=== PATIENT | male | born 1945 | race African-American/Black ===

== ENCOUNTER 2016-09-25 11:06 | Emergency (ER) | payer OTHER ==
[2016-09-25] MEDS ORDERED: SOLU-MEDROL IV ONE (11:19)
[2016-09-25] MEDS ORDERED: NS 1,000 ML IV ONE (11:19)
[2016-09-25] MEDS ORDERED: DUONEB (A & A) INH ONE (11:19)
[2016-09-25 11:30] LABS: BE 8.8 mmoll (-3.0-3.0); BLOOD TYPE ARTERIAL; DRAW SITE R RADIAL; METHB 1.7 % (0.0-1.5); O2(CT) 18.8 mL/dL (15.0-23.0); PCO2(98.6) 41 mmHg (35-45); PO2(98.6) 60 mmHg (60-100); SAMPLE BLOOD; SAO2 94.9 % (95.0-100.0); THB 14.9 g/dL (11.5-17.4); pH(98.6) 7.51 (7.35-7.45)
[2016-09-25 11:32] LABS: ALLEN TEST YES; MODALITY ROOM AIR
--- NOTE | 2016-09-25 11:47 | EKG Report ---
Test Performed on : 09/25/2016 11:38:35 AM Test Reason : AMS Blood Pressure : / mmHG Vent. Rate : 089 BPM Atrial Rate : 089 BPM P-R Int : 168 ms QRS Dur : 092 ms QT Int : 354 ms P-R-T Axes : 045 -47 040 degrees QTc Int : 430 ms Normal sinus rhythm. Left axis deviation Pulmonary disease pattern Abnormal ECG No previous ECGs available Unconfirmed Result
--- NOTE | 2016-09-25 11:52 | PROVIDER DOCUMENTATION ---
HPI-General Adult - General Source: patient - History of Present Illness -Gen Adult Nature of Presenting Problems: Reports with weakness coughing and fever and generalized pain x 4 days . Family at bedside. Reports n/v. Location of Pain/Injury: reports: generalized Quality of Pain: reports: none Severity: reports: moderate Onset/Duration: reports: 4 days ago Timing: reports: still present Similar Symptoms Previously?: No Recently seen or treated by another doctor?: No <Dannie Rodriguez - Last Filed: 09/25/16 13:56> <Latricia Beck - Last Filed: 09/25/16 14:07> - General Chief Complaint: Dizziness Stated Complaint: NAUSEA/WEAKNESS Time Seen by Provider: 09/25/16 11:15 Allergies/Adverse Reactions: Patient Allergies Allergy/AdvReac Type Severity Reaction Status Date / Time No Known Allergies Allergy Verified 09/25/16 11:17 Home Medications: Indapamide 2.5 mg PO DAILY 09/25/16 Meclizine [Antivert] 12.5 mg PO Q6H PRN PRN 09/25/16 Tamsulosin HCl 0.4 mg PO DAILY 09/25/16 Review of Systems - Adult - REVIEW OF SYSTEMS - ADULT Constitutional: reports: fever, fatique. denies: chills Eyes: reports: no symptoms reported Ears, Nose, Mouth & Throat: denies: ear pain, sinus problem, throat pain Cardiovascular: denies: chest pain, irregular heart rate, orthopnea, syncope Respiratory: reports: cough. denies: pleurisy, shortness of breath, wheezing Gastrointestinal: reports: nausea, vomiting. denies: abdominal pain, diarrhea, rectal bleeding Genitourinary: reports: no symptoms reported Musculoskeletal: reports: muscle aches. denies: frequent leg cramps, joint pain , joint swelling Integumentary: reports: no symptoms reported Neurological: reports: no symptoms reported Psychiatric: reports: no symptoms reported Endocrine: reports: no symptoms reported Hematologic/Lymphatic: reports: no symptoms reported Allergic/Immunologic: reports: no symptoms reported All Other Systems: Reviewed and Negative <Dannie Rodriguez - Last Filed: 09/25/16 13:56> Past History - Adult - PAST MEDICAL HISTORY-ADULT Review of Records: reports: Nursing Assessment Review Major Childhood Illnesses: reports: denies history Cardiovascular: reports: HTN - IMMUNIZATION STATUS Childhood Immunizations: See Nurse Assessment Flu Vaccine: See Nurse Assessment - FAMILY HISTORY Family History: reviewed, not pertinent - SOCIAL HISTORY Smoking: denies Substance Use: none/never <Dannie Rodriguez - Last Filed: 09/25/16 13:56> Physical Exam-General - PHYSICAL EXAM-ADULT Initial Vital Signs Reviewed: Yes - CONSTITUTIONAL General Appearance: appears well, alert, no apparent distress - EYES Eyes: PERRL/EOMI, pink conjunctivae - HEAD, EARS, NOSE, MOUTH & THROAT HENMT: normocephalic/atraumatic, moist mucous membranes, normal ENT inspection - NECK Neck: non-tender, full range of motion, normal inspection - RESPIRATORY Respiratory: chest non-tender, lungs clear, normal breath sounds - CARDIOVASCULAR Cardiovascular: normal peripheral pulses, regular rate, rhythm, no edema - GASTROINTESTINAL (ABDOMEN) Abdominal Exam: normal bowel sounds, non tender, soft - LYMPHATIC Lymphatic: no adenopathy - MUSCULOSKELETAL Back Exam: normal inspection, no CVA tenderness, no vertebral tenderness Extremity: normal range of motion, non-tender, normal gait - SKIN Integumentary: normal color, normal turgor, warm/dry - NEUROLOGIC Neurologic: grossly normal, no motor/sensory deficits - PSYCHIATRIC Psych/Mental Status: normal mood/affect, normal thought content, normal thought process, oriented x 3 <Dannie Rodriguez - Last Filed: 09/25/16 13:56> Progress - PLAN OF CARE/RESULTS Progress/Plan/Lab Results: Orders Category Date Time Status Cardiac Monitoring DIRECTED Care 09/25/16 11:19 Active Finger Stick Blood Sugar (ED) DIRECTED Care 09/25/16 11:19 Active Oxygen Therapy- ED Nursing DIRECTED Care 09/25/16 11:19 Active Saline Loc NOW Care 09/25/16 11:19 Active CHEST-PORTABLE [RAD] Stat Exams 09/25/16 11:19 Ordered ABG [RESP] Routine Lab 09/25/16 11:20 Completed BLOOD CULTURE [BLDCUL] Stat Lab 09/25/16 11:19 Ordered CBC WITH ELECTRONIC DIFF [HEME] Stat Lab 09/25/16 11:19 Ordered COMPREHENSIVE METABOLIC PANEL [CHEM] Stat Lab 09/25/16 11:[address] Or[address]IME WITH INR PL [COAG] Stat Lab 09/25/16 11:[address] [COAG] Stat Lab 09/25/16 11:19 Ordered TROPONIN T Stat Lab 09/25/16 11:[address] W/POSS RFLX CULT [URINALYSIS] Stat Lab 09/25/16 11:19 Uncollected URINE DRUG SCREEN PL Stat Lab 09/25/16 11:19 Uncollected 0.9% Sodium Chloride Inj [Ns] 1,000 ml Med 09/25/16 11:19 Active IV 150 mls/hr Albuterol 2.5MG/Ipratrop 0.5MG [Duoneb (A & A)] Med 09/25/16 11:19 Discontinued 3 ml INH NOW ONE Methylprednisolone Sod Succ [Solu-Medrol] Med 09/25/16 11:19 Discontinued 125 mg IV NOW ONE Aerosol Treatments Routine Oth 09/25/16 11:22 Active Aerosol Treatments Stat Oth 09/25/16 11:22 Active Pulse Oximetry Stat Oth 09/25/16 11:19 Active EKG [EKG] Stat Ther 09/25/16 11:19 Draft Vital Signs - 24 hr 09/25/16 11:14 Temperature 101.7 F H Pulse Rate 90 Respiratory 20 Rate Blood Pressure 137/076 O2 Sat by Pulse 91 L Oximetry Laboratory Tests 09/25/16 09/25/16 09/25/16 11:20 11:40 11:40 WBC RBC Hgb Hct MCV MCH MCHC RDW Std Deviation Plt Count MPV Immature Gran % (Auto) Neut % (Auto) Lymph % (Auto) [place] % (Auto) Eos % (Auto) Baso % (Auto) Immature Gran # (Auto) Neut # (Auto) Lymph # (Auto) [place] # (Auto) Eos # (Auto) Baso # (Auto) PT INR APTT (Factor Assay) Specimen Type ARTERIAL Sample Site R RADIAL pH 7.51 H pCO2 41 pO2 60 HCO3 31.6 H Base Excess 8.8 H Oxyhemoglobin 90.0 L ABG O2 Sat (Calculated) 18.8 ABG O2 Saturation 94.9 L ABG Carboxyhemoglobin 3.40 H ABG Methemoglobin 1.7 H Jaxon Test YES A-a O2 Difference 38.0 Total Hemoglobin 14.9 Lactate 1.20 Blood Gas Modality ROOM AIR FiO2 % 21.0 Sodium 134 L Potassium 3.2 L Chloride 92 L Carbon Dioxide 32 Anion Gap 10 BUN 25 H Creatinine 1.2 Estimated GFR/1.73 m2 60 BUN/Creatinine Ratio 21 Glucose 116 H Calculated Osmolality 274 Calcium 9.3 Total Bilirubin 0.40 AST 22 ALT 16 Alkaline Phosphatase 60 Troponin T < 0.010 Total Protein 8.1 Albumin 4.2 Globulin 4.0 Albumin/Globulin Ratio 1.0 Urine Source Urine Color Urine Clarity Urine pH Ur Specific [place] Urine Protein Urine Ketones Urine Blood Urine Nitrite Urine Bilirubin Urine Urobilinogen Urine Microscopic RBC Urine WBC Urine Microscopic WBC Ur Epithelial Cells Urine Glucose Urine Opiates Screen Ur Oxycodone Screen Urine Methadone Screen Ur Barbituates Screen Ur Tricyclics Screen Ur Phencyclidine Scrn Ur Amphetamines Screen U Methamphetamines Scrn Urine MDMA Screen U Benzodiazepines Scrn Urine Cocaine Screen U Cannabinoids Screen 09/25/16 09/25/16 09/25/16 11:40 11:40 13:12 WBC 8.17 RBC 4.67 L Hgb 14.2 Hct 43.1 MCV 92.3 MCH 30.4 MCHC 32.9 L RDW Std Deviation 13.3 Plt Count 193 MPV 9.7 Immature Gran % (Auto) 0.1 Neut % (Auto) 78.7 H Lymph % (Auto) 8.4 L [place] % (Auto) 12.7 H Eos % (Auto) 0.0 Baso % (Auto) 0.1 Immature Gran # (Auto) 0.01 Neut # (Auto) 6.42 Lymph # (Auto) 0.69 L [place] # (Auto) 1.04 H Eos # (Auto) 0.00 Baso # (Auto) 0.01 PT 13.8 INR 1.03 APTT (Factor Assay) 28.1 Specimen Type Sample Site pH pCO2 pO2 HCO3 Base Excess Oxyhemoglobin ABG O2 Sat (Calculated) ABG O2 Saturation ABG Carboxyhemoglobin ABG Methemoglobin Jaxon Test A-a O2 Difference Total Hemoglobin Lactate Blood Gas Modality FiO2 % Sodium Potassium Chloride Carbon Dioxide Anion Gap BUN Creatinine Estimated GFR/1.73 m2 BUN/Creatinine Ratio Glucose Calculated Osmolality Calcium Total Bilirubin AST ALT Alkaline Phosphatase Troponin T Total Protein Albumin Globulin Albumin/Globulin Ratio Urine Source CLEAN CATCH Urine Color YELLOW Urine Clarity CLEAR Urine pH 5.0 Ur Specific [place] 1.020 Urine Protein 2+(100 mg/dL) A Urine Ketones 1+(Small) A Urine Blood 3+ A Urine Nitrite NEGATIVE Urine Bilirubin NEGATIVE Urine Urobilinogen NORMAL Urine Microscopic RBC 10-20 A Urine WBC NEGATIVE Urine Microscopic WBC <10 Ur Epithelial Cells <10 Urine Glucose NEGATIVE Urine Opiates Screen Ur Oxycodone Screen Urine Methadone Screen Ur Barbituates Screen Ur Tricyclics Screen Ur Phencyclidine Scrn Ur Amphetamines Screen U Methamphetamines Scrn Urine MDMA Screen U Benzodiazepines Scrn Urine Cocaine Screen U Cannabinoids Screen 09/25/16 13:12 WBC RBC Hgb Hct MCV MCH MCHC RDW Std Deviation Plt Count MPV Immature Gran % (Auto) Neut % (Auto) Lymph % (Auto) [place] % (Auto) Eos % (Auto) Baso % (Auto) Immature Gran # (Auto) Neut # (Auto) Lymph # (Auto) [place] # (Auto) Eos # (Auto) Baso # (Auto) PT INR APTT (Factor Assay) Specimen Type Sample Site pH pCO2 pO2 HCO3 Base Excess Oxyhemoglobin ABG O2 Sat (Calculated) ABG O2 Saturation ABG Carboxyhemoglobin ABG Methemoglobin Jaxon Test A-a O2 Difference Total Hemoglobin Lactate Blood Gas Modality FiO2 % Sodium Potassium Chloride Carbon Dioxide Anion Gap BUN Creatinine Estimated GFR/1.73 m2 BUN/Creatinine Ratio Glucose Calculated Osmolality Calcium Total Bilirubin AST ALT Alkaline Phosphatase Troponin T Total Protein Albumin Globulin Albumin/Globulin Ratio Urine Source Urine Color Urine Clarity Urine pH Ur Specific [place] Urine Protein Urine Ketones Urine Blood Urine Nitrite Urine Bilirubin Urine Urobilinogen Urine Microscopic RBC Urine WBC Urine Microscopic WBC Ur Epithelial Cells Urine Glucose Urine Opiates Screen NONE DETECTED Ur Oxycodone Screen NONE DETECTED Urine Methadone Screen NONE DETECTED Ur Barbituates Screen NONE DETECTED Ur Tricyclics Screen NONE DETECTED Ur Phencyclidine Scrn NONE DETECTED Ur Amphetamines Screen NONE DETECTED U Methamphetamines Scrn NONE DETECTED Urine MDMA Screen NONE DETECTED U Benzodiazepines Scrn NONE DETECTED Urine Cocaine Screen NONE DETECTED U Cannabinoids Screen NONE DETECTED - EKG 1 Time of EKG reading by physician:: 11:38 EKG Read and Signed by:: Latricia Beck EKG Interpretation (*Must complete 3 of following elements*): Abnormal ( pulmonary disease pattern) Rate: 89 Rhythm: nsr [place]: left - XRAY 1 XRAY: Bilateral XRAY Study: Chest Impression: Normal XRAY Interpretation: NAD <Dannie Rodriguez - Last Filed: 09/25/16 13:56> - PLAN OF CARE/RESULTS Progress/Plan/Lab Results: Laboratory Results - last 24 hr 09/25/16 09/25/16 09/25/16 11:20 11:40 11:40 WBC RBC Hgb Hct MCV MCH MCHC RDW Std Deviation Plt Count MPV Immature Gran % (Auto) Neut % (Auto) Lymph % (Auto) [place] % (Auto) Eos % (Auto) Baso % (Auto) Immature Gran # (Auto) Neut # (Auto) Lymph # (Auto) [place] # (Auto) Eos # (Auto) Baso # (Auto) PT INR APTT (Factor Assay) Specimen Type ARTERIAL Sample Site R RADIAL pH 7.51 H pCO2 41 pO2 60 HCO3 31.6 H Base Excess 8.8 H Oxyhemoglobin 90.0 L ABG O2 Sat (Calculated) 18.8 ABG O2 Saturation 94.9 L ABG Carboxyhemoglobin 3.40 H ABG Methemoglobin 1.7 H Jaxon Test YES A-a O2 Difference 38.0 Total Hemoglobin 14.9 Lactate 1.20 Blood Gas Modality ROOM AIR FiO2 % 21.0 Sodium 134 L Potassium 3.2 L Chloride 92 L Carbon Dioxide 32 Anion Gap 10 BUN 25 H Creatinine 1.2 Estimated GFR/1.73 m2 60 BUN/Creatinine Ratio 21 Glucose 116 H Calculated Osmolality 274 Calcium 9.3 Total Bilirubin 0.40 AST 22 ALT 16 Alkaline Phosphatase 60 Troponin T < 0.010 Total Protein 8.1 Albumin 4.2 Globulin 4.0 Albumin/Globulin Ratio 1.0 Urine Source Urine Color Urine Clarity Urine pH Ur Specific [place] Urine Protein Urine Ketones Urine Blood Urine Nitrite Urine Bilirubin Urine Urobilinogen Urine Microscopic RBC Urine WBC Urine Microscopic WBC Ur Epithelial Cells Urine Glucose Urine Opiates Screen Ur Oxycodone Screen Urine Methadone Screen Ur Barbituates Screen Ur Tricyclics Screen Ur Phencyclidine Scrn Ur Amphetamines Screen U Methamphetamines Scrn Urine MDMA Screen U Benzodiazepines Scrn Urine Cocaine Screen U Cannabinoids Screen 09/25/16 09/25/16 09/25/16 11:40 11:40 13:12 WBC 8.17 RBC 4.67 L Hgb 14.2 Hct 43.1 MCV 92.3 MCH 30.4 MCHC 32.9 L RDW Std Deviation 13.3 Plt Count 193 MPV 9.7 Immature Gran % (Auto) 0.1 Neut % (Auto) 78.7 H Lymph % (Auto) 8.4 L [place] % (Auto) 12.7 H Eos % (Auto) 0.0 Baso % (Auto) 0.1 Immature Gran # (Auto) 0.01 Neut # (Auto) 6.42 Lymph # (Auto) 0.69 L [place] # (Auto) 1.04 H Eos # (Auto) 0.00 Baso # (Auto) 0.01 PT 13.8 INR 1.03 APTT (Factor Assay) 28.1 Specimen Type Sample Site pH pCO2 pO2 HCO3 Base Excess Oxyhemoglobin ABG O2 Sat (Calculated) ABG O2 Saturation ABG Carboxyhemoglobin ABG Methemoglobin Jaxon Test A-a O2 Difference Total Hemoglobin Lactate Blood Gas Modality FiO2 % Sodium Potassium Chloride Carbon Dioxide Anion Gap BUN Creatinine Estimated GFR/1.73 m2 BUN/Creatinine Ratio Glucose Calculated Osmolality Calcium Total Bilirubin AST ALT Alkaline Phosphatase Troponin T Total Protein Albumin Globulin Albumin/Globulin Ratio Urine Source CLEAN CATCH Urine Color YELLOW Urine Clarity CLEAR Urine pH 5.0 Ur Specific [place] 1.020 Urine Protein 2+(100 mg/dL) A Urine Ketones 1+(Small) A Urine Blood 3+ A Urine Nitrite NEGATIVE Urine Bilirubin NEGATIVE Urine Urobilinogen NORMAL Urine Microscopic RBC 10-20 A Urine WBC NEGATIVE Urine Microscopic WBC <10 Ur Epithelial Cells <10 Urine Glucose NEGATIVE Urine Opiates Screen Ur Oxycodone Screen Urine Methadone Screen Ur Barbituates Screen Ur Tricyclics Screen Ur Phencyclidine Scrn Ur Amphetamines Screen U Methamphetamines Scrn Urine MDMA Screen U Benzodiazepines Scrn Urine Cocaine Screen U Cannabinoids Screen 09/25/16 13:12 WBC RBC Hgb Hct MCV MCH MCHC RDW Std Deviation Plt Count MPV Immature Gran % (Auto) Neut % (Auto) Lymph % (Auto) [place] % (Auto) Eos % (Auto) Baso % (Auto) Immature Gran # (Auto) Neut # (Auto) Lymph # (Auto) [place] # (Auto) Eos # (Auto) Baso # (Auto) PT INR APTT (Factor Assay) Specimen Type Sample Site pH pCO2 pO2 HCO3 Base Excess Oxyhemoglobin ABG O2 Sat (Calculated) ABG O2 Saturation ABG Carboxyhemoglobin ABG Methemoglobin Jaxon Test A-a O2 Difference Total Hemoglobin Lactate Blood Gas Modality FiO2 % Sodium Potassium Chloride Carbon Dioxide Anion Gap BUN Creatinine Estimated GFR/1.73 m2 BUN/Creatinine Ratio Glucose Calculated Osmolality Calcium Total Bilirubin AST ALT Alkaline Phosphatase Troponin T Total Protein Albumin Globulin Albumin/Globulin Ratio Urine Source Urine Color Urine Clarity Urine pH Ur Specific [place] Urine Protein Urine Ketones Urine Blood Urine Nitrite Urine Bilirubin Urine Urobilinogen Urine Microscopic RBC Urine WBC Urine Microscopic WBC Ur Epithelial Cells Urine Glucose Urine Opiates Screen NONE DETECTED Ur Oxycodone Screen NONE DETECTED Urine Methadone Screen NONE DETECTED Ur Barbituates Screen NONE DETECTED Ur Tricyclics Screen NONE DETECTED Ur Phencyclidine Scrn NONE DETECTED Ur Amphetamines Screen NONE DETECTED U Methamphetamines Scrn NONE DETECTED Urine MDMA Screen NONE DETECTED U Benzodiazepines Scrn NONE DETECTED Urine Cocaine Screen NONE DETECTED U Cannabinoids Screen NONE DETECTED Orders Category Date Time Status Cardiac Monitoring DIRECTED Care 09/25/16 11:19 Active Finger Stick Blood Sugar (ED) DIRECTED Care 09/25/16 11:19 Active Oxygen Therapy- ED Nursing DIRECTED Care 09/25/16 11:19 Active Saline Loc NOW Care 09/25/16 11:19 Active CHEST-PORTABLE [RAD] Stat Exams 09/25/16 11:19 Draft ABG [RESP] Routine Lab 09/25/16 11:20 Completed BLOOD CULTURE [BLDCUL] Stat Lab 09/25/16 11:19 Ordered CBC WITH ELECTRONIC DIFF [HEME] Stat Lab 09/25/16 11:40 Completed COMPREHENSIVE METABOLIC PANEL [CHEM] Stat Lab 09/25/16 11:40 Completed PROTIME WITH INR PL [COAG] Stat Lab 09/25/16 11:[address] [COAG] Stat Lab 09/25/16 11:40 Completed TROPONIN T Stat Lab 09/25/16 11:[address] W/POSS RFLX CULT [URINALYSIS] Stat Lab 09/25/16 13:12 Completed URINE DRUG SCREEN PL Stat Lab 09/25/16 13:12 Completed 0.9% Sodium Chloride Inj [Ns] 1,000 ml Med 09/25/16 11:19 Active IV 150 mls/hr Albuterol 2.5MG/Ipratrop 0.5MG [Duoneb (A & A)] Med 09/25/16 11:19 Discontinued 3 ml INH NOW ONE Hydrocodone/APAP 7.5 mg/325 mg [[place]-7.5] Med 09/25/16 13:10 Discontinued 1 each PO NOW ONE Methylprednisolone Sod Succ [Solu-Medrol] Med 09/25/16 11:19 Discontinued 125 mg IV NOW ONE Potassium Chloride E.r. [Klor-Con] Med 09/25/16 13:10 Discontinued 40 meq PO NOW ONE Aerosol Treatments Routine Oth 09/25/16 11:22 Active Aerosol Treatments Stat Oth 09/25/16 11:22 Active Pulse Oximetry Stat Oth 09/25/16 11:19 Active EKG [EKG] Stat Ther 09/25/16 11:19 Draft Vital Signs Temp Pulse Resp BP Pulse Ox 09/25/16 12:06 100.3 F H 94 H 24 130/82 100 09/25/16 11:14 101.7 F H 90 20 137/076 91 L No Known Allergies Allergy (Verified 09/25/16 11:17) Indapamide 2.5 mg PO DAILY 09/25/16 Meclizine [Antivert] 12.5 mg PO Q6H PRN PRN 09/25/16 Tamsulosin HCl 0.4 mg PO DAILY 09/25/16 Laboratory 09/25/16 09/25/16 09/25/16 13:12 13:12 11:40 WBC RBC Hgb Hct MCV MCH MCHC RDW Std Deviation Plt Count MPV Immature Gran % (Auto) Neut % (Auto) Lymph % (Auto) [place] % (Auto) Eos % (Auto) Baso % (Auto) Immature Gran # (Auto) Neut # (Auto) Lymph # (Auto) [place] # (Auto) Eos # (Auto) Baso # (Auto) PT 13.8 INR 1.03 APTT (Factor Assay) 28.1 Specimen Type Sample Site pH pCO2 pO2 HCO3 Base Excess Oxyhemoglobin ABG O2 Sat (Calculated) ABG O2 Saturation ABG Carboxyhemoglobin ABG Methemoglobin Jaxon Test A-a O2 Difference Total Hemoglobin Lactate Blood Gas Modality FiO2 % Sodium Potassium Chloride Carbon Dioxide Anion Gap BUN Creatinine Estimated GFR/1.73 m2 BUN/Creatinine Ratio Glucose Calculated Osmolality Calcium Total Bilirubin AST ALT Alkaline Phosphatase Troponin T Total Protein Albumin Globulin Albumin/Globulin Ratio Urine Source CLEAN CATCH Urine Color YELLOW Urine Clarity CLEAR Urine pH 5.0 Ur Specific [place] 1.020 Urine Protein 2+(100 mg/dL) A Urine Ketones 1+(Small) A Urine Blood 3+ A Urine Nitrite NEGATIVE Urine Bilirubin NEGATIVE Urine Urobilinogen NORMAL Urine Microscopic RBC 10-20 A Urine WBC NEGATIVE Urine Microscopic WBC <10 Ur Epithelial Cells <10 Urine Glucose NEGATIVE Urine Opiates Screen NONE DETECTED Ur Oxycodone Screen NONE DETECTED Urine Methadone Screen NONE DETECTED Ur Barbituates Screen NONE DETECTED Ur Tricyclics Screen NONE DETECTED Ur Phencyclidine Scrn NONE DETECTED Ur Amphetamines Screen NONE DETECTED U Methamphetamines Scrn NONE DETECTED Urine MDMA Screen NONE DETECTED U Benzodiazepines Scrn NONE DETECTED Urine Cocaine Screen NONE DETECTED U Cannabinoids Screen NONE DETECTED 09/25/16 09/25/16 09/25/16 11:40 11:40 11:40 WBC 8.17 RBC 4.67 L Hgb 14.2 Hct 43.1 MCV 92.3 MCH 30.4 MCHC 32.9 L RDW Std Deviation 13.3 Plt Count 193 MPV 9.7 Immature Gran % (Auto) 0.1 Neut % (Auto) 78.7 H Lymph % (Auto) 8.4 L [place] % (Auto) 12.7 H Eos % (Auto) 0.0 Baso % (Auto) 0.1 Immature Gran # (Auto) 0.01 Neut # (Auto) 6.42 Lymph # (Auto) 0.69 L [place] # (Auto) 1.04 H Eos # (Auto) 0.00 Baso # (Auto) 0.01 PT INR APTT (Factor Assay) Specimen Type Sample Site pH pCO2 pO2 HCO3 Base Excess Oxyhemoglobin ABG O2 Sat (Calculated) ABG O2 Saturation ABG Carboxyhemoglobin ABG Methemoglobin Jaxon Test A-a O2 Difference Total Hemoglobin Lactate Blood Gas Modality FiO2 % Sodium 134 L Potassium 3.2 L Chloride 92 L Carbon Dioxide 32 Anion Gap 10 BUN 25 H Creatinine 1.2 Estimated GFR/1.73 m2 60 BUN/Creatinine Ratio 21 Glucose 116 H Calculated Osmolality 274 Calcium 9.3 Total Bilirubin 0.40 AST 22 ALT 16 Alkaline Phosphatase 60 Troponin T < 0.010 Total Protein 8.1 Albumin 4.2 Globulin 4.0 Albumin/Globulin Ratio 1.0 Urine Source Urine Color Urine Clarity Urine pH Ur Specific [place] Urine Protein Urine Ketones Urine Blood Urine Nitrite Urine Bilirubin Urine Urobilinogen Urine Microscopic RBC Urine WBC Urine Microscopic WBC Ur Epithelial Cells Urine Glucose Urine Opiates Screen Ur Oxycodone Screen Urine Methadone Screen Ur Barbituates Screen Ur Tricyclics Screen Ur Phencyclidine Scrn Ur Amphetamines Screen U Methamphetamines Scrn Urine MDMA Screen U Benzodiazepines Scrn Urine Cocaine Screen U Cannabinoids Screen 09/25/16 11:20 WBC RBC Hgb Hct MCV MCH MCHC RDW Std Deviation Plt Count MPV Immature Gran % (Auto) Neut % (Auto) Lymph % (Auto) [place] % (Auto) Eos % (Auto) Baso % (Auto) Immature Gran # (Auto) Neut # (Auto) Lymph # (Auto) [place] # (Auto) Eos # (Auto) Baso # (Auto) PT INR APTT (Factor Assay) Specimen Type ARTERIAL Sample Site R RADIAL pH 7.51 H pCO2 41 pO2 60 HCO3 31.6 H Base Excess 8.8 H Oxyhemoglobin 90.0 L ABG O2 Sat (Calculated) 18.8 ABG O2 Saturation 94.9 L ABG Carboxyhemoglobin 3.40 H ABG Methemoglobin 1.7 H Jaxon Test YES A-a O2 Difference 38.0 Total Hemoglobin 14.9 Lactate 1.20 Blood Gas Modality ROOM AIR FiO2 % 21.0 Sodium Potassium Chloride Carbon Dioxide Anion Gap BUN Creatinine Estimated GFR/1.73 m2 BUN/Creatinine Ratio Glucose Calculated Osmolality Calcium Total Bilirubin AST ALT Alkaline Phosphatase Troponin T Total Protein Albumin Globulin Albumin/Globulin Ratio Urine Source Urine Color Urine Clarity Urine pH Ur Specific [place] Urine Protein Urine Ketones Urine Blood Urine Nitrite Urine Bilirubin Urine Urobilinogen Urine Microscopic RBC Urine WBC Urine Microscopic WBC Ur Epithelial Cells Urine Glucose Urine Opiates Screen Ur Oxycodone Screen Urine Methadone Screen Ur Barbituates Screen Ur Tricyclics Screen Ur Phencyclidine Scrn Ur Amphetamines Screen U Methamphetamines Scrn Urine MDMA Screen U Benzodiazepines Scrn Urine Cocaine Screen U Cannabinoids Screen - REASSESSMENT Reassessment #1 Time Reassessed: 14:03 Status: other (Pt and family admantly declined CT head, stating that no concerns for stroke/bleeding and pt is not on blood thinners.) Reassessment Comment: Pt doing better and he is completely asymptomatic now. <Latricia Beck - Last Filed: 09/25/16 14:07> Departure <Dannie Rodriguez - Last Filed: 09/25/16 13:56> - Departure Time of Disposition Order: 14:05 Certified Medical Emergency: Emergent <Latricia Beck - Last Filed: 09/25/16 14:07> - Departure DIAGNOSIS: Dizziness, Atypical chest pain Sinusitis Qualifiers: Sinusitis location: unspecified location Chronicity: acute Recurrence: not specified as recurrent Qualified Code(s): J01.90 - Acute sinusitis, unspecified Disposition: HOME 01 Condition: Stable Additional Instructions: Follow up with regular MD in 2-3 days. Return to ER if your symptoms worsen. Prescriptions: Meclizine HCl [Antivert] 25 mg PO TID #20 tablet Amoxicillin/Pot Clavulanate [Augmentin] 875 mg PO Q12HR #20 tablet Referrals: Alberto Capone Jr, MD [Primary Care Provider] - Attestation - Scribe Verification/Attestation Scribe:: Dannie Rodriguez Acting as Scribe for:: Latricia Beck Scribe documention review:: This chart was documented by a scribe and accurately reflects the service the provider performed and the decisions made by the provider. <Dannie Rodriguez - Last Filed: 09/25/16 13:56> Physician Attestation
[2016-09-25 12:02] LABS: MANUAL DIFF NEEDED? NO
[2016-09-25 12:05] LABS: BASO% 0.1 % (0.0-0.8); HEMATOCRIT 43.1 % (42.0-52.0); HEMOGLOBIN 14.2 g/dL (14.0-18.0); IMM GRAN# 0.01 X1000 (0.0-0.04); IMM GRAN% 0.1 % (0.0-0.5); LYMPH# 0.69 X1000 (1.2-3.4); LYMPH% 8.4 % (20.5-51.1); MCH 30.4 PG (27-31); MCHC 32.9 g/dL (33-37); MCV 92.3 FL (81-99); MONO# 1.04 X1000 (0.11-0.59); MONO% 12.7 % (1.7-9.3); MPV 9.7 FL (7.4-10.4); NEUT% 78.7 % (42.2-75.2); PLT 193 X1000 (130-400); RBC 4.67 XMIL (4.7-6.1)
[2016-09-25 12:22] LABS: INR 1.03 (0.86-1.15); PROTIME 13.8 Seconds (12.1-15.5)
[2016-09-25 12:23] LABS: PTT PL 28.1 Seconds (22.6-43.9)
[2016-09-25 12:26] LABS: ALBUMIN 4.2 g/dL (3.5-5.0); CALCIUM 9.3 mg/dL (8.8-10.2); POTASSIUM 3.2 mmol/L (3.5-5.1); TOTAL BILIRUBIN 0.4 mg/dL (0.20-1.00); TOTAL PROTEIN 8.1 g/dL (6.3-8.3)
--- NOTE | 2016-09-25 12:35 | Diag Imaging Result Document ---
PROCEDURE NAME: CHEST-PORTABLE - 09/25/2016 PORTABLE CHEST X-RAY: COMPARISON: 02/08/2011. FINDINGS: Stable metallic pellets in the soft tissues of the right shoulder. The lungs are clear. Heart size is normal. No pneumothorax or pleural effusion. IMPRESSION: No acute disease.
[2016-09-25] MEDS ORDERED: NORCO-7.5 PO ONE (13:10)
[2016-09-25] MEDS ORDERED: KLOR-CON PO ONE (13:10)
[2016-09-25 13:20] LABS: URINE CULTURE PL NEEDED? NO; URINE SOURCE CLEAN CATCH
[2016-09-25 13:33] LABS: BILIRUBIN URINE NEGATIVE (NEGATIVE); BLOOD URINE 3+ (NEGATIVE); CLARITY CLEAR (CLEAR); COLOR YELLOW; GLUCOSE URINE NEGATIVE (NEGATIVE); LEUKOCYTES URINE NEGATIVE (NEGATIVE); NITRITE URINE NEGATIVE (NEGATIVE); PROTEIN URINE 2+(100 mg/dL) mg/dL (NEGATIVE); UR AMPHETAMINES QUAL NONE DETECTED (NONE DETECT); UR BARBITUATES QUAL NONE DETECTED (NONE DETECT); UR BENZODIAZEPIN QUAL NONE DETECTED (NONE DETECT); UR CANNABINOIDS QUAL NONE DETECTED (NONE DETECT); UR COCAINE QUAL NONE DETECTED (NONE DETECT); UR MDMA QUAL NONE DETECTED (NONE DETECT); UR METHADONE QUAL NONE DETECTED (NONE DETECT); UR METHAMPHETAMINE QUAL NONE DETECTED (NONE DETECT); UR OPIATES QUAL NONE DETECTED (NONE DETECT); UR OXYCODONE QUAL NONE DETECTED (NONE DETECT); UR PCP QUAL NONE DETECTED (NONE DETECT); UR TCA QUAL NONE DETECTED (NONE DETECT); UROBILINOGEN URINE NORMAL
[2016-09-25 13:43] LABS: URINE WBC <10 /HPF (<10)
[2016-09-25 13:44] LABS: URINE EPITHELIAL CELLS <10 /HPF (<10)
[2016-09-25 14:30] VITALS: BP 131/80
== END 2016-09-25 14:48 | disposition home or self-care (01) ==
LOC: SUPCPDRO 11:06 → P.ED 11:06
DX: J01.90 Acute sinusitis, unspecified (principal); R07.89 Other chest pain; R42 Dizziness and giddiness; R94.31 Abnormal electrocardiogram [ECG] [EKG]; R53.1 Weakness; R05 Cough; R50.9 Fever, unspecified; R53.83 Other fatigue; Z79.899 Other long term (current) drug therapy; R11.2 Nausea with vomiting, unspecified; M79.1 Myalgia; I10 Essential (primary) hypertension
CPT/HCPCS: 36415; 71010; 80053; 81001; 82805; 82948; 84484; 85025; 85610; 85730; 87040; 93005; 94640; 96361; 96374; G0477; J2930; J7030